=== PATIENT | female | born 1970 | race Caucasian/White ===

== ENCOUNTER → 2022-07-10 10:38 | Outpatient (CLI) | payer OTHER, SELFPAY ==
--- NOTE | 2022-07-10 | DI.MRI.S_ITS ---
PROCEDURE: MR KNEE LT WO CON INDICATIONS: Unspecified internal derangement of left knee TECHNIQUE: Noncontrast sagittal PD fast spin echo and T2 fast spin echo with fat saturation, sagittal 3-D FLASH with fat saturation; coronal T1 spin echo and PD fast spin echo with fat saturation, and axial PD fast spin echo with fat saturation through the knee. COMPARISON: None. FINDINGS: Image quality: Excellent. Menisci: The medial and lateral menisci demonstrate normal morphology and internal signal. The meniscal root ligaments appear intact. Cruciate ligaments: The anterior and posterior cruciate ligaments appear intact. Medial structures: Thickening of medial collateral ligament with surrounding edema is seen. The posterior oblique ligament, semimembranosus tendon insertions, oblique popliteal ligament, and meniscocapsular junction appear intact. Visualized portions of the pes anserinus tendons appear normal. No abnormal bursal fluid. Lateral structures: The lateral collateral ligament, long and short heads of the biceps femoris tendon appear intact. The popliteus tendon appears normal; the popliteofibular ligament appears intact. Iliotibial band appears normal. Anterior structures: Distal quadriceps tendinosis and low-grade partial-thickness tear at its calcaneal insertion is seen. Patellar tendon is intact. Patellar alignment is normal. No femoral trochlear dysplasia or ventral trochlear prominence. No edema in the infrapatellar fat pad. 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 No fracture or dislocation. Joint space: There is small knee joint fluid. No Whatley's cyst. Normal appearing synovial plicae are incidentally noted. IMPRESSION: 1. Moderate MCL sprain/partial-thickness tear. Cruciate ligaments are intact. 2. No evidence of focal meniscal tear. 3. 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 No fracture or dislocation. Small joint effusion. 4. Distal quadriceps tendinosis and low-grade partial-thickness tear at its insertion on superior patella. Patellar tendon is intact. Dictated by: Gaurang Esparza M.D. on 07/10/2022 at 13:24 Approved by: Gaurang Esparza M.D. on 07/10/2022 at 14:16
== END ==
PROVIDERS: Referring Provider Orthopaedic Surgery Foot and Ankle Surgery; Visit Provider Orthopaedic Surgery Foot and Ankle Surgery
DX: S83.412A Sprain of medial collateral ligament of left knee, initial encounter (principal); S76.112A Strain of left quadriceps muscle, fascia and tendon, initial encounter; M17.12 Unilateral primary osteoarthritis, left knee; M22.42 Chondromalacia patellae, left knee; M23.92 Unspecified internal derangement of left knee; M25.462 Effusion, left knee
CPT/HCPCS: 73721

== ENCOUNTER → 2024-05-28 11:52 | Outpatient (CLI) | payer OTHER, SELFPAY ==
[2024-05-28 13:04] LABS: Add Manual Diff / Slide Review NO; Basophils Absolute Auto 0 /uL (0-100); Basophils Percent Auto 0.6 % (0-2); Eosinophils Absolute Auto 100 /uL (0-450); Hematocrit 42.4 % (36-46); Hemoglobin 14.1 g/dL (12.0-16.0); Lymphocytes Absolute Auto 1600 /uL (1100-4500); Mean Corpuscular HGB Conc 33.3 % (30-36); Mean Corpuscular Hemoglobin 32.1 PG (26-34); Mean Corpuscular Volume 96.5 fL (80-100); Monocytes Absolute Auto 500 /uL (0-900); Monocytes Percent Auto 7.6 % (3-14); Neutrophils Absolute Auto 4900 /uL (1500-7000); Neutrophils Percent Auto 67.8 % (50-75); Platelet Count 422 X10^3/uL (150-400); Red Blood Cell Count 4.39 X10^6/uL (4.0-5.2); Red Cell Distribution Width 13.6 % (11.6-14.8); White Blood Cell Count 7.2 X10^3/uL (4.5-11.0)
[2024-05-28 13:22] LABS: BUN Creatinine Ratio 18.8 (6-22); Blood Urea Nitrogen 15 mg/dL (7-17); Calcium 9.4 mg/dL (8.4-10.2); Carbon Dioxide 24 mmol/L (22-32); Chloride 103 mmol/L (98-107); Cholesterol 232 mg/dL (140-199); Estimated Glomerular Filt Rate > 60 mL/min (>60); Glucose 100 mg/dL (70-100); HEMOLYSIS < 15 (0-50); Potassium 3.7 mmol/L (3.4-5.1); Sodium 136 mmol/L (137-145); Triglycerides 52 mg/dL (35-150)
[2024-05-28 13:31] LABS: HDL Cholesterol 131 mg/dL (40-60); LDL Cholesterol Calculated 91 mg/dL (<100)
[2024-05-28 13:52] LABS: TSH w/ Reflex to FT4 1.52 uIU/mL (0.47-4.68)
== END ==
PROVIDERS: PCP Nurse Practitioner Family; Referring Provider Nurse Practitioner Family; Visit Provider Nurse Practitioner Family
DX: F41.9 Anxiety disorder, unspecified (principal); F32.A Depression, unspecified
CPT/HCPCS: 36415; 80048; 80061; 84443; 85025

== ENCOUNTER → 2024-06-30 | Outpatient (CLI) | payer OTHER, SELFPAY ==
--- NOTE | 2024-06-30 | DI.US.S_ITS ---
LIMITED ULTRASOUND OF RIGHT BREAST: 06/30/2024 CLINICAL: Patient returns today to evaluate a focal asymmetry in the right breast. Comparison is made to exams dated: 06/30/2024 mammogram - [facility], 02/20/2020 mammogram - [facility], 02/20/2020 mammogram, and 09/26/2018 mammogram - out side. Real-time ultrasound of the right breast 10-11 o'clock region was performed. Luis scale images of the real-time examination were reviewed. No sonographic correlate identified at 10 and 11 o'clock at a distance of 10 to 11 cm from the nipple. IMPRESSION: SUSPICIOUS 1) Right breast subtle architectural distortion at 10 o'clock posterior depth best seen on CC view and without sonographic correlate. Finding is suspicious. Recommend stereotactic guided core biopsy. If finding can not be reproduced at time of biopsy, consider short interval follow up pending results of calcification biopsy. 2) Right breast 0.6 cm grouped amorphous calcifications at 10 o'clock middle depth. Finding is suspicious. Recommend stereotactic guided biopsy. Findings and recommendations were discussed with the patient by Dr. Mosquera during today's examination. This exam was interpreted at Station ID: [id number]. Electronically Signed By: Narda Singh M.D., Ph.D. eb/:07/05/2024 02:18:07 letter sent: Biopsy Required ACR BI-RADS Category 4: Suspicious
--- NOTE | 2024-06-30 09:30 | DI.MG.S_ITS ---
BILATERAL DIGITAL DIAGNOSTIC MAMMOGRAM 3D/2D: 06/30/2024 CLINICAL: Diffuse pain in the Left breast. Comparison is made to exams dated: 02/20/2020 mammogram, 09/26/2018 mammogram, and 09/25/2017 mammogram - out side. The breasts are heterogeneously dense, which may obscure small masses (category c / 51-75% glandular tissue). In the right breast, there is subtle architectural distortion in the right breast at 10 o'clock posterior depth. There are grouped round calcifications anterior to this finding. In the right breast, there is 0.6 cm grouped amorphous calcifications in the right breast at 10 o'clock middle depth. In the left breast, because the patient's symptoms are diffuse, no BB marker was placed. No other significant masses, calcifications, or other findings are seen in either breast. IMPRESSION: INCOMPLETE: NEED ADDITIONAL IMAGING EVALUATION 1) Right breast subtle architectural distortion at 10 o'clock posterior depth is indeterminate. An ultrasound is recommended for further evaluation and is scheduled to immediately follow this examination. 2) Right breast 0.6 cm grouped amorphous calcifications at 10 o'clock middle depth. Finding is suspicious. Recommend stereotactic guided biopsy. 3) No mammographic evidence of malignancy in the left breast. Recommend routine annual mammogram screening in 1 year. Diffuse, non-focal symptoms, such as pain or fullness are typically benign. Clinical follow-up is recommended, and further management of these symptoms should be based on the results of clinical evaluation. If diffuse symptoms persist or become more focal in nature, further clinical evaluation should be considered. Findings and recommendations were conveyed to the patient by Dr. Mosquera during today's evaluation. Based on the Tyrer Cuzick model (a risk assessment model) the patient's lifetime risk is 19.1% and her 10 year risk is 5.2%. According to the ACR, ACS, and NCCN guidelines, an annual breast MRI exam along with mammogram is recommended if the patient's lifetime risk is 20% or greater. This exam was interpreted at Station ID: [id number]. NOTE: For mammograms, a report in lay terms will be sent to the patient. Approximately 15% of breast malignancies will not be visualized mammographically. In the management of a palpable breast mass, a negative mammogram must not discourage biopsy of a clinically suspicious lesion. Electronically Signed By: Narda Singh M.D., Ph.D. eb/:07/05/2024 01:54:22 letter sent: Additional Imaging Needed ACR BI-RADS Category 0: Incomplete: Need Additional Imaging Evaluation
== END ==
LOC: MAMMO 09:30
PROVIDERS: PCP Nurse Practitioner Family; Referring Provider Nurse Practitioner Family; Visit Provider Nurse Practitioner Family
DX: R92.8 Other abnormal and inconclusive findings on diagnostic imaging of breast (principal); R92.1 Mammographic calcification found on diagnostic imaging of breast; R92.333 Mammographic heterogeneous density, bilateral breasts; N64.4 Mastodynia; F41.9 Anxiety disorder, unspecified; F32.A Depression, unspecified
CPT/HCPCS: 76642; 77066; G0279